=== PATIENT | female | born 1985 | race Hispanic/Latino ===

== ENCOUNTER 2017-12-19 17:50 | Emergency (ER) | payer OTHER ==
[2017-12-19 18:06] VITALS: TEMP 98.4
[2017-12-19] MEDS ORDERED: Lactated Ringer's 1,000 ML IV STA (18:58)
[2017-12-19] MEDS ORDERED: DiphenhydrAMINE 50 mg/ml Inj IVP STA (18:58)
[2017-12-19] MEDS ORDERED: Dextrose 5%/Lactated Ringer's 1,000 ML IV SCH (19:00)
[2017-12-19 20:11] LABS: BASO % 0.4 % (0.0-2.0); EOS % 0.2 % (0.0-4.0); HEMOGLOBIN 11.7 g/dL (12.0-16.0); LYMPH # 1.2 K/uL (1.0-4.3); LYMPH % 9.7 % (20.0-40.0); MEAN CELL VOLUME 91.6 fl (81.0-99.0); MEAN CORPUSCULAR HEMOGLOBIN 29.6 pg (27.0-31.0); MEAN CORPUSCULAR HGB CONC 32.3 g/dL (33.0-37.0); MEAN PLATELET VOLUME 7.1 fl (7.2-11.7); MONO # 0.7 K/uL (0.0-0.8); MONO % 6.1 % (0.0-10.0); NEUT # 10.1 K/uL (1.8-7.0); NEUT % 83.6 % (50.0-75.0); NRBC % 0.1 % (0.0-0.0); PLATELET COUNT 350 K/uL (130-400); RBC 3.96 Mil/uL (3.80-5.20); RED CELL DISTRIBUTION WIDTH 15.4 % (11.5-14.5)
--- NOTE | 2017-12-19 20:11 | ED PDOC ---
HPI: Abdomen Time Seen by Provider: 12/19/17 18:39 Chief Complaint (Nursing): GI Problem Chief Complaint (Provider): GI Problem History Per: Patient History/Exam Limitations: no limitations Onset/Duration Of Symptoms: Days (x8) Current Symptoms Are (Timing): Still Present Associated Symptoms: Vomiting Additional Complaint(s): 32 y/o female who is 8 days after delivering twins by presents to the ED for evaluation of intractable vomiting, starting Friday evening. Patient states she is managing to have a few sips of fluid between vomiting episodes. Patient is not tolerating fluid intake. Patient reports of trying Zofran as prescribed by her doctor with minimal relief. Patient also reports of a headache, decreased urine output and minimal bowel movement. Denies fever, abdominal pain, chest pain, swelling, shortness of breath and sick contacts. PMD: In [place] Past Medical History Reviewed: Historical Data, Nursing Documentation, Vital Signs Vital Signs: Last Vital Signs Temp 98.4 F 12/19/17 18:03 Pulse 70 12/20/17 00:16 Resp 20 12/20/17 00:16 BP 116/70 12/20/17 00:16 Pulse Ox 100 12/20/17 00:16 - Medical History PMH: No Chronic Diseases - Surgical History Surgical History: - Family History Family History: States: Unknown Family Hx - Home Medications Home Medications: Ambulatory Orders Medication Instructions Recorded Metoclopramide [Reglan] 1 tab PO TID PRN #30 tab 12/19/17 - Allergies Allergies/Adverse Reactions: Allergies Allergy/AdvReac Type Severity Reaction Status Date / Time shellfish derived Allergy RASH Verified 12/19/17 18:03 Review of Systems ROS Statement: Except As Marked, All Systems Reviewed And Found Negative (as per HPI) Constitutional: Negative for: Fever Cardiovascular: Negative for: Chest Pain Respiratory: Negative for: Shortness of Breath Gastrointestinal: Positive for: Vomiting, Other (Decreased Fluid/PO intake). Negative for: Abdominal Pain Genitourinary Female: Positive for: Other (Decreased Urine Output) Neurological: Positive for: Headache Physical Exam - Reviewed Nursing Documentation Reviewed: Yes Vital Signs Reviewed: Yes - Physical Exam Appears: Positive for: No Acute Distress (but tired appearing) Head Exam: Positive for: ATRAUMATIC, NORMOCEPHALIC Skin: Positive for: Warm, Dry Eye Exam: Positive for: EOMI, PERRL ENT: Positive for: Pharynx Is (clear), Other (Tachy Mucous Membranes) Neck: Positive for: Painless ROM, Supple Cardiovascular/Chest: Positive for: Regular Rate, Rhythm. Negative for: Murmur Respiratory: Positive for: Normal Breath Sounds. Negative for: Wheezing Gastrointestinal/Abdominal: Positive for: Normal Exam, Soft, Other ( scar with steri strips (clean, dry and intact). No redness or tenderness). Negative for: Tenderness, Mass, Distended, Guarding, Rebound Back: Positive for: Normal Inspection. Negative for: Decreased ROM Extremity: Positive for: Normal ROM. Negative for: Deformity Lymphatic: Negative for: Adenopathy Neurologic/Psych: Positive for: Alert. Negative for: Motor/Sensory Deficits - Laboratory Results Result Diagrams: 12/19/17 20:06 12/19/17 20:06 - ECG O2 Sat by Pulse Oximetry: 99 (RA) Pulse Ox Interpretation: Normal Medical Decision Making Medical Decision Making: Time: 2005 Impression: Intractable vomiting Dehydration gastritis, dehydration and electrolyte abnormality Plan: -- CMP -- Lact Acid, Plasma -- Lipase -- Magnesium -- Phosphorus -- Thyroid Stimulating Hormone -- ED Urine Dipstick -- CBC with differentials -- Benadryl 25 mg IVP -- Dextrose 5%/Lactated Ringer's 1,000 ml IV 100 mls/hr -- Lactated Ringer's IV 1000 mls/hr -- Pepcid 20 mg IVP -- Reglan 10 mg IVP -- Urine Culture -- IV Insertion -- Urinalysis Labs with minimally elevated LFTs. No emergently significant lab abnormalities. 1130p On reevaluation pt feels better. Tolerated apple juice in ER. Scribe Attestation: Documented by Patrick Arcos acting as a scribe for Dr. Francisca Verdugo. Provider Scribe Attestation: All medical record entries made by the Scribe were at my direction and personally dictated by me. I have reviewed the chart and agree that the record accurately reflects my personal performance of the history, physical exam, medical decision making, and the department course for this patient. I have also personally directed, reviewed, and agree with the discharge instructions and disposition. Disposition - Clinical Impression Clinical Impression: Intractable vomiting, Dehydration Counseled Patient/Family Regarding: Studies Performed, Diagnosis, Need For Followup, Rx Given - Disposition Referrals: [facility] [Outside] Disposition: Routine/Home Disposition Time: 23:43 Condition: IMPROVED Additional Instructions: DRINK PLENTY OF HYDRATING FLUIDS AND REST FOLLOW UP WITH YOUR OB IN 1-2 DAYS FOR REEVALUATION RETURN TO ER FOR RECURRENCE OF SYMPTOMS, OR ANY NEW WORRISOME SYMPTOMS. KARLIE MENJIVAR, thank you for letting us take care of you today. Your provider was Francisca Verdugo MD and you were treated for vomiting and dehydration. The emergency medical care you received today was directed at your acute symptoms. If you were prescribed any medication, please fill it and take as directed. It may take several days for your symptoms to resolve. Return to the Emergency Department if your symptoms worsen, do not improve, or if you have any other problems. Please contact your doctor or call one of the physicians/clinics you have been referred to that are listed on the Patient Visit Information form that is included in your discharge packet. Bring any paperwork you were given at discharge with you along with any medications you are taking to your follow up visit. Our treatment cannot replace ongoing medical care by a primary care provider outside of the emergency department. Thank you for allowing the [facility] team to be part of your care today. Prescriptions: Metoclopramide [Reglan] 1 tab PO TID PRN #30 tab PRN Reason: Nausea/Vomiting Instructions: Dehydration, Adult (DC), Nausea and Vomiting, Adult (DC) Forms: [employer] (Lao)
[2017-12-19] MEDS ORDERED: DiphenhydrAMINE 50 mg/ml Inj ONE (20:15)
[2017-12-19 20:22] LABS: ALBUMIN 3.6 g/dL (3.5-5.0); ALT/SGPT 68 U/L (9-52); AST/SGOT 37 U/L (14-36); BLOOD UREA NITROGEN 7 mg/dl (7-17); CALCIUM 8.9 mg/dL (8.4-10.2); GFR NON-AFRICAN AMERICAN > 60; LIPASE 30 U/L (23-300)
[2017-12-19 20:27] LABS: SQUAMOUS EPITHIAL 1 /hpf (0-5); URINE BACTERIA RARE (<OCC); URINE BILIRUBIN NEGATIVE (NEGATIVE); URINE BLOOD LARGE (NEGATIVE); URINE CLARITY SLIGHTY-CLOUDY (Clear); URINE COLOR YELLOW (YELLOW); URINE GLUCOSE (UA) NEG (Normal); URINE LEUKOCYTE ESTERASE MOD Leu/uL (Negative); URINE PROTEIN NEGATIVE (NEGATIVE); URINE UROBILINOGEN 0.2-1.0 mg/dL (0.2-1.0)
[2017-12-19 21:37] LABS: ANISOCYTOSIS SLIGHT; BURR CELLS SLIGHT; LYMPHOCYTE 7 % (20-50); MONOCYTE 9 % (0-10); NEUTROPHIL 84 % (42-75); PLATELET ESTIMATE NORMAL (NORMAL); TOTAL CELLS COUNTED 100
[2017-12-19 21:39] LABS: TEARDROP CELLS SLIGHT
[2017-12-20 00:16] VITALS: BP 116/70; PULSE 70; RESP 20
[2017-12-20 17:33] VITALS: O2SAT 99
== END 2017-12-20 00:36 | disposition home or self-care (01) ==
LOC: H.ER 17:50
DX: E86.0 Dehydration (principal); R11.10 Vomiting, unspecified; K29.70 Gastritis, unspecified, without bleeding
CPT/HCPCS: 80053; 81003; 83605; 83690; 83735; 84100; 84443; 85025; 87086; 87181; 96361; 96374; 96375; 99284; J1200; J2765; J7120